=== PATIENT | male | born 2000 | race Asian ===

== ENCOUNTER 2021-08-17 | Emergency (ER) | payer OTHER ==
[~2021-08-17] VITALS: Ht 170.2 cm; Wt 72.6 kg
[2021-08-17 00:55] VITALS: BP 132/83; TEMP 98.2
== END 2021-08-17 00:55 ==
LOC: ED
DX: S51.812A Laceration without foreign body of left forearm, initial encounter (principal); X99.1XXA Assault by knife, initial encounter; Y92.89 Other specified places as the place of occurrence of the external cause
CPT/HCPCS: 90471; 90715; 99282